=== PATIENT | male | born 2000 | race Caucasian/White ===

== ENCOUNTER 2022-05-26 14:45 | Observation (INO) | payer OTHER ==
[~2022-05-26] VITALS: Ht 185.4 cm; Wt 87.8 kg
[2022-05-26] MEDS ORDERED: CLINDAMYCIN 900 MG in IV 1 EA IV ONE (18:40)
[2022-05-26] MEDS ORDERED: NS 1,000 ML IV ONE (18:40)
[2022-05-26] MEDS ORDERED: ISOVUE-370 76% 100ML VIAL As Ordered ONE (19:23)
[2022-05-26 19:43] LABS: BASO # 0.1 10^3/uL (0.0-0.2); BASO % 0.3 % (0.0-1.0); HEMATOCRIT 45.4 % (42.0-52.0); LYMPH # 1.4 10^3/uL (1.5-5.0); LYMPH % 7.9 % (24.0-44.0); MEAN CORPUSCULAR HEMOGLOBIN 30.7 pg (27.0-33.0); MEAN CORPUSCULAR VOLUME 92.8 fl (80.0-96.0); NEUTROPHILS # 14.5 10^3/uL (1.5-8.5); NEUTROPHILS % 79.4 % (36.0-66.0); PLATELET COUNT, AUTOMATED 227 10^3/uL (150-450); RED BLOOD COUNT 4.89 10^6/uL (4.30-6.10); WHITE BLOOD COUNT 18.3 10^3/uL (4.0-10.0)
[2022-05-26 20:10] LABS: MONO # 2.2 10^3/uL (0.0-0.8)
[2022-05-26 20:13] LABS: MONO SCRN NEGATIVE (NEGATIVE)
[2022-05-26] MEDS ORDERED: KETOROLAC 30 MG/ML 1ML VIAL IV ONE (20:15)
[2022-05-26] MEDS ORDERED: SODIUM CHLORIDE 0.9% 1000ML IV SCH (20:35)
[2022-05-26] MEDS ORDERED: NS 1,000 ML IV SCH (20:35)
[2022-05-26] MEDS ORDERED: ACETAMINOPHEN TAB 650MG DOSE (2X325MG) PO PRN (20:35)
[2022-05-26] MEDS ORDERED: IBUP-1730 PO (20:47)
[2022-05-26] MEDS ORDERED: HOME MED LIST COMPLETE! XX SCH (20:50)
[2022-05-26 21:16] LABS: RSV AMPLIFICATION NEGATIVE (NEGATIVE)
[2022-05-26 22:37] VITALS: BP 121/76
[2022-05-27] MEDS: CLINDAMYCIN 600 MG in IV 1 EA IV SCH ×4 (00:56→19:16)
[2022-05-27] MEDS ORDERED: KETOROLAC 30 MG/ML 1ML VIAL IV PRN (02:00)
[2022-05-27 06:17] VITALS: BP 103/59
[2022-05-27 08:32] LABS: BASO % 0.1 % (0.0-1.0); HEMOGLOBIN 13.3 g/dl (13.5-17.5); LYMPH # 0.8 10^3/uL (1.5-5.0); LYMPH % 6.1 % (24.0-44.0); MEAN CORPUSCULAR HEMOGLOBIN 31.1 pg (27.0-33.0); MEAN CORPUSCULAR HGB CONC 32.4 g/dl (32.0-36.5); MONO # 0.7 10^3/uL (0.0-0.8); MONO % 5.2 % (2.0-8.0); NEUTROPHILS # 11.4 10^3/uL (1.5-8.5); NEUTROPHILS % 88.1 % (36.0-66.0); PLATELET COUNT, AUTOMATED 202 10^3/uL (150-450); RED BLOOD COUNT 4.27 10^6/uL (4.30-6.10)
[2022-05-27 09:03] LABS: BLOOD UREA NITROGEN 16 MG/DL (9-23); CALCIUM LEVEL 8.6 MG/DL (8.5-10.1); CARBON DIOXIDE LEVEL 25 MMOL/L (20-31); CHLORIDE LEVEL 107 MMOL/L (98-107); CREATININE FOR GFR 1.14 MG/DL (0.70-1.30); GLOMERULAR FILTRATION RATE > 60.0 (>60); GLUCOSE, FASTING 120 MG/DL (60-100); POTASSIUM SERUM 4.9 MMOL/L (3.5-5.1); SODIUM LEVEL 139 MMOL/L (136-145)
[2022-05-27 14:20] VITALS: BP 103/59
[2022-05-27] MEDS ORDERED: IBUP-1730 PO (16:06)
[2022-05-27] MEDS ORDERED: CLIN150C17 PO (16:06)
== END 2022-05-27 20:20 | disposition home or self-care (01) ==
LOC: M ED 14:45 → M ED INP 20:34 → ENRESERV 21:45 → M MS5PR 22:37
PROVIDERS: ADMIT Internal Medicine; ATTEND Internal Medicine
DX: J03.90 Acute tonsillitis, unspecified (principal); A41.9 Sepsis, unspecified organism; F17.210 Nicotine dependence, cigarettes, uncomplicated
CPT/HCPCS: 36415; 70491; 80047; 80048; 83605; 85025; 86308; 87040; 87631; 87880; 96365; 96366; 96375; 96376; 99284; J1100; J1885; S0077

== ENCOUNTER 2022-09-15 11:27 | Inpatient (IN) | payer OTHER ==
[~2022-09-15] VITALS: Ht 185.4 cm; Wt 86.5 kg
[~2022-09-15 11:27] MED LIST: CLIN150C17 PO; IBUP-1730 PO
[2022-09-15] MEDS ORDERED: DOXY-444 PO (11:40)
[2022-09-15] MEDS ORDERED: ACETAMINOPHEN 500 MG TAB PO ONE (12:00)
[2022-09-15] MEDS ORDERED: NS 1,000 ML IV ONE ×2 (12:10→13:05)
[2022-09-15] MEDS ORDERED: AMPICILLIN SOD/SULBACTAM SOD 3 GM in D5W MINI-BAG PLUS 100 ML IV ONE (12:10)
[2022-09-15 12:34] LABS: BASO % 0.3 % (0.0-1.0); HEMATOCRIT 46.8 % (42.0-52.0); HEMOGLOBIN 15.6 g/dl (13.5-17.5); LYMPH # 1.1 10^3/uL (1.5-5.0); LYMPH % 11.5 % (24.0-44.0); MEAN CORPUSCULAR HEMOGLOBIN 30.6 pg (27.0-33.0); MEAN CORPUSCULAR HGB CONC 33.3 g/dl (32.0-36.5); MEAN CORPUSCULAR VOLUME 91.9 fl (80.0-96.0); MONO % 16.7 % (2.0-8.0); NEUTROPHILS # 6.9 10^3/uL (1.5-8.5); PLATELET COUNT, AUTOMATED 207 10^3/uL (150-450); RED BLOOD COUNT 5.09 10^6/uL (4.30-6.10); WHITE BLOOD COUNT 9.8 10^3/uL (4.0-10.0)
[2022-09-15 12:58] LABS: BLOOD UREA NITROGEN 14 MG/DL (9-23); CARBON DIOXIDE LEVEL 29 MMOL/L (20-31); CHLORIDE LEVEL 96 MMOL/L (98-107); CREATININE FOR GFR 1.36 MG/DL (0.70-1.30); GLOMERULAR FILTRATION RATE > 60.0 (>60); GLUCOSE, FASTING 90 MG/DL (60-100); POTASSIUM SERUM 3.8 MMOL/L (3.5-5.1); SODIUM LEVEL 135 MMOL/L (136-145)
[2022-09-15 13:14] LABS: MONO # 1.6 10^3/uL (0.0-0.8)
[2022-09-15 13:21] LABS: MONO REFLEX EBV COMP NEGATIVE (NEGATIVE)
[2022-09-15] MEDS ORDERED: ISOVUE-370 76% 100ML VIAL As Ordered ONE (13:30)
[2022-09-15] MEDS ORDERED: IBUP200C28 PO (15:54)
[2022-09-15] MEDS ORDERED: HOME MED LIST COMPLETE! XX SCH (15:55)
[2022-09-15 16:00] LABS: RSV AMPLIFICATION NEGATIVE (NEGATIVE)
[2022-09-15] MEDS ORDERED: KETOROLAC 30 MG/ML 1ML VIAL IV PRN ×2 (16:15)
[2022-09-15] MEDS ORDERED: ACETAMINOPHEN TAB 650MG DOSE (2X325MG) PO PRN (16:15)
[2022-09-15] MEDS ORDERED: MOM 30ML SUSPENSION UDC PO PRN (16:15)
[2022-09-15] MEDS: LR 1,000 ML IV SCH ×2 (16:30→17:53)
[2022-09-15 18:00] VITALS: BP 126/76
[2022-09-15] MEDS: AMPICILLIN SOD/SULBACTAM SOD 3 GM in D5W MINI-BAG PLUS 100 ML IV SCH (18:43)
[2022-09-15 20:15] VITALS: BP 119/73; O2SAT 98
[2022-09-15] MEDS: DOCUSATE SODIUM 100MG CAPSULE PO SCH (20:24)
[2022-09-16] VITALS (7 sets, daily range): BP systolic 88–145; BP diastolic 56–78; O2SAT 96
[2022-09-16] MEDS: AMPICILLIN SOD/SULBACTAM SOD 3 GM in D5W MINI-BAG PLUS 100 ML IV SCH ×4 (00:35→18:34)
[2022-09-16] MEDS: LR 1,000 ML IV SCH ×2 (03:19→12:30)
[2022-09-16 06:57] LABS: HEMOGLOBIN 14.5 g/dl (13.5-17.5); MEAN CORPUSCULAR HGB CONC 33.7 g/dl (32.0-36.5); MEAN CORPUSCULAR VOLUME 92.1 fl (80.0-96.0); PLATELET COUNT, AUTOMATED 191 10^3/uL (150-450); RED BLOOD COUNT 4.67 10^6/uL (4.30-6.10); WHITE BLOOD COUNT 9.6 10^3/uL (4.0-10.0)
[2022-09-16 07:06] LABS: INR 1.09; PROTHROMBIN TIME 14.3 SECONDS (12.5-14.5)
[2022-09-16 07:24] LABS: BLOOD UREA NITROGEN 16 MG/DL (9-23); CALCIUM LEVEL 8.3 MG/DL (8.5-10.1); CARBON DIOXIDE LEVEL 29 MMOL/L (20-31); CHLORIDE LEVEL 105 MMOL/L (98-107); CREATININE FOR GFR 1.03 MG/DL (0.70-1.30); GLOMERULAR FILTRATION RATE > 60.0 (>60); GLUCOSE, FASTING 116 MG/DL (60-100); POTASSIUM SERUM 4.5 MMOL/L (3.5-5.1); SODIUM LEVEL 141 MMOL/L (136-145)
[2022-09-16] MEDS ORDERED: ACETAMINOPHEN 500 MG TAB PO PRN (07:35)
[2022-09-16] MEDS: DOCUSATE SODIUM 100MG CAPSULE PO SCH ×2 (08:59→19:26)
[2022-09-16] MEDS: ENOXAPARIN 40MG/0.4ML SYRINGE (J1650 PER 10MG) SC SCH (09:00)
[2022-09-16 15:09] LABS: EBV AB TO NUCLEAR ANTIGEN <18.0 U/mL (0.0-17.9); EBV VIRAL CAPSID AG IgG <18.0 U/mL (0.0-17.9); EBV VIRAL CAPSID AG IgM <36.0 U/mL (0.0-35.9)
[2022-09-17] VITALS: BP 99/49
[2022-09-17] MEDS: AMPICILLIN SOD/SULBACTAM SOD 3 GM in D5W MINI-BAG PLUS 100 ML IV SCH ×2 (00:53→06:20)
[2022-09-17 04:56] VITALS: BP 93/46
[2022-09-17 07:24] LABS: HEMATOCRIT 41.9 % (42.0-52.0); HEMOGLOBIN 13.7 g/dl (13.5-17.5); MEAN CORPUSCULAR HEMOGLOBIN 30.4 pg (27.0-33.0); MEAN CORPUSCULAR HGB CONC 32.7 g/dl (32.0-36.5); MEAN CORPUSCULAR VOLUME 92.9 fl (80.0-96.0); PLATELET COUNT, AUTOMATED 226 10^3/uL (150-450); RED BLOOD COUNT 4.51 10^6/uL (4.30-6.10); WHITE BLOOD COUNT 17.7 10^3/uL (4.0-10.0)
[2022-09-17 07:45] LABS: BLOOD UREA NITROGEN 15 MG/DL (9-23); CALCIUM LEVEL 8.7 MG/DL (8.5-10.1); CARBON DIOXIDE LEVEL 30 MMOL/L (20-31); CHLORIDE LEVEL 106 MMOL/L (98-107); CREATININE FOR GFR 1.03 MG/DL (0.70-1.30); GLOMERULAR FILTRATION RATE > 60.0 (>60); GLUCOSE, FASTING 117 MG/DL (60-100); POTASSIUM SERUM 4.2 MMOL/L (3.5-5.1); SODIUM LEVEL 143 MMOL/L (136-145)
[2022-09-17 08:00] VITALS: BP 135/60
[2022-09-17] MEDS: DOCUSATE SODIUM 100MG CAPSULE PO SCH (08:09)
[2022-09-17] MEDS: ENOXAPARIN 40MG/0.4ML SYRINGE (J1650 PER 10MG) SC SCH (08:09)
[2022-09-17 08:30] VITALS: BP 128/52; O2SAT 98
[2022-09-17] MEDS ORDERED: PRED10TA2 PO (10:06)
[2022-09-17] MEDS ORDERED: PROBCAP14 PO (10:06)
[2022-09-17] MEDS ORDERED: AMOX875T2 PO (10:06)
== END 2022-09-17 14:10 | disposition home or self-care (01) | DRG 153 ==
LOC: M ED 11:27 → M ED INP 16:12 → ENRESERV 16:54 → M PED 17:40 → OBSVTOIN 09-16 16:02
PROVIDERS: ADMIT Student in an Organized Health Care Education/Training Program; ATTEND Student in an Organized Health Care Education/Training Program
DX: J03.90 Acute tonsillitis, unspecified (principal); N17.9 Acute kidney failure, unspecified; E86.0 Dehydration; D72.829 Elevated white blood cell count, unspecified; F17.200 Nicotine dependence, unspecified, uncomplicated

== ENCOUNTER 2025-03-06 11:34 | Emergency (ER) | payer OTHER ==
[~2025-03-06] VITALS: Ht 185.4 cm; Wt 94.1 kg
[~2025-03-06 11:34] MED LIST changes: +AMOX875T2 PO; +DOXY-440 PO; +IBUP200C28 PO; +PRED10TA2 PO; +PROBCAP14 PO
[2025-03-06] MEDS: KETOROLAC 60 MG/2 ML VIAL IM ONE (17:31)
[2025-03-06 17:43] LABS: BASO # 0.0 10^3/uL (0.0-0.2); BASO % 0.4 % (0.0-1.0); EOS # 0.0 10^3/uL (0.0-0.5); EOS % 0.4 % (0.0-3.0); LYMPH # 2.1 10^3/uL (1.5-5.0); LYMPH % 21.1 % (24.0-44.0); MONO # 0.9 10^3/uL (0.0-0.8); MONO % 9.0 % (2.0-8.0); NEUTROPHILS # 6.8 10^3/uL (1.5-8.5); NEUTROPHILS % 68.7 % (36.0-66.0); PLATELET COUNT, AUTOMATED 301 10^3/uL (150-450)
[2025-03-06 18:10] LABS: C REACTIVE PROTEIN QUANTITATIV 0.91 MG/DL (<1.0)
[2025-03-06 18:11] LABS: CALCIUM LEVEL 9.9 MG/DL (8.5-10.1); CARBON DIOXIDE LEVEL 28 MMOL/L (20-31); CHLORIDE LEVEL 103 MMOL/L (98-107); CREATININE FOR GFR 1.22 MG/DL (0.70-1.30); GLOMERULAR FILTRATION RATE 84.4 (>60); POTASSIUM SERUM 5.0 MMOL/L (3.5-5.1); SODIUM LEVEL 142 MMOL/L (136-145)
[2025-03-06 19:35] VITALS: BP 128/71; TEMP 98.2; O2SAT 97
[2025-03-06] MEDS ORDERED: KETO-204 PO (19:57)
== END 2025-03-06 20:06 | disposition home or self-care (01) ==
LOC: M ED 11:34
DX: M10.071 Idiopathic gout, right ankle and foot (principal); M79.671 Pain in right foot; F17.200 Nicotine dependence, unspecified, uncomplicated; F10.10 Alcohol abuse, uncomplicated; Z79.1 Long term (current) use of non-steroidal anti-inflammatories (NSAID); Z79.899 Other long term (current) drug therapy
CPT/HCPCS: 73630; 80048; 84145; 84550; 85025; 85652; 86140; 96372; 99283; J1885